=== PATIENT | female | born 1985 | race Caucasian/White ===

== ENCOUNTER 2016-10-02 07:16 | Inpatient (IN) | payer BC, OTHER ==
[~2016-10-02] VITALS: Ht 162.6 cm; Wt 91.8 kg
[2016-10-02] VITALS (12 sets, daily range): BP systolic 94–127; BP diastolic 52–86
[~2016-10-02 07:16] MED LIST: BENTYL20 MG PO; CLARITIN,ALAVAR10 MG PO; COLACE100 MG PO; ENDOCET 5-3251 EACH PO; FLOMAX0.4 MG PO; IBUPROFEN800 MG PO; KEFLEX500 MG PO; MACROBID100 MG PO; Motrin PO; NOHOMEMEDS; PERCOCET 5/31 TABLET PO; PRENATAL TABLE1 EAC3 PO; PROMETHAZINE HC25 M1 PO; Percocet 5/325,Endoc PO; SPRINTEC1 EACH PO; TORADOL10 MG PO; TYLENOL EXTRA500 MG PO; TYLENOL REGULA325 MG PO; ZANTAC150 MG PO
[2016-10-02 09:09] LABS: EOSINOPHIL (%) 0.5 % (0-5); HEMATOCRIT 32.5 % (36.0-46.0); IMMATURE GRANULOCYTE (%) 0.8 % (0.0-0.7); IMMATURE GRANULOCYTE COUNT 0.1 K/uL; LYMPHOCYTE COUNT 2.1 K/uL (1.0-2.8); MCH 27.9 PG (29.0-34.0); MCHC 32.3 G/DL (30.0-36.0); MCV 86.4 FL (83-99); MEAN PLAT.VOLUME 8.7 uM^3 (9.5-12.4); MONOCYTE (%) 9.1 % (3-12); MONOCYTE COUNT 0.7 K/uL (0-0.8); NEUTROPHIL (%) 63.4 % (45-76); PLATELET COUNT 254 K/uL (156-360); RBC DIS.WIDTH-CV 15.1 % (11.8-14.6); RBC DIS.WIDTH-SD 47.3 % (39-53); RED BLOOD COUNT 3.76 M/uL (3.80-5.20); WHITE BLOOD COUNT 7.9 K/uL (4.1-10.2)
[2016-10-02 10:08] LABS: POINT-OF-CARE METER ID UU13113692; POINT-OF-CARE USER ID 608261309
[2016-10-02] MEDS ORDERED: IRON325 MG PO (12:52)
[2016-10-02] MEDS ORDERED: PREVACID15 MG PO (12:53)
[2016-10-02 15:45] LABS: POINT-OF-CARE METER ID UU13113692; POINT-OF-CARE USER ID 608261309
[2016-10-02] MEDS ORDERED: IBUPROFEN800 MG PO (16:04)
[2016-10-02] MEDS ORDERED: PRENATAL VITAM1 EAC6 PO (16:04)
[2016-10-03 08:20] VITALS: BP 112/68
[2016-10-03 15:08] VITALS: BP 117/76
[2016-10-03 17:31] LABS: POINT-OF-CARE METER ID UU13113692
[2016-10-03 23:00] VITALS: BP 108/63
[2016-10-04 08:51] VITALS: BP 138/62
[2016-10-04 16:25] VITALS: BP 113/62
== END 2016-10-04 17:50 | disposition home or self-care (01) | DRG 775 ==
LOC: LDRP-OP 07:16 → 2WEST 07:17 → LDRP-OP 19:51 → 2WEST 10-04 17:50 → LDRP-OP 11-08 15:02
PROVIDERS: Nurse Practitioner; Obstetrics & Gynecology
DX: O70.1 Second degree perineal laceration during delivery (principal); Z3A.39 39 weeks gestation of pregnancy; Z37.0 Single live birth; O24.420 Gestational diabetes mellitus in childbirth, diet controlled; O99.214 Obesity complicating childbirth; E66.3 Overweight; Z68.33 Body mass index [BMI] 33.0-33.9, adult
CPT/HCPCS: 82948; 85025; C1755; J2405; J3010; J7120